=== PATIENT | female | born 1980 | race Caucasian/White ===

== ENCOUNTER 2017-03-26 05:58 | Inpatient (IN) | payer MEDICARE, MEDICAID ==
[~2017-03-26] VITALS: Ht 152.4 cm; Wt 55.6 kg
[~2017-03-26 05:58] MED LIST: DIVA125C PO; DIVA125T2 PO
[2017-03-26 07:08] LABS: RAPID INFLUENZA A Negative (Negative); RAPID INFLUENZA B Negative (Negative)
[2017-03-26 07:13] LABS: HEMATOCRIT 42.1 % (34.6-47.8); HEMOGLOBIN 14.4 g/dL (11.7-16.4); WHITE BLOOD COUNT 19.2 x10^3/uL (3.4-10)
[2017-03-26] MEDS ORDERED: GLYCERIN ADULT SUPP PR ONE (07:30)
[2017-03-26 07:48] LABS: ASPARTATE AMINO TRANSFERASE 12 U/L (15-37); BLOOD UREA NITROGEN 20 mg/dL (7-18)
[2017-03-26] MEDS ORDERED: CEFTRIAXONE PMX 1GM/50ML 50 ML IVPB ONE (08:00)
[2017-03-26] MEDS ORDERED: SODIUM CHLORIDE 0.9% 1,000ML IVBOLUS ONE (08:00)
[2017-03-26] MEDS ORDERED: CEFTRIAXONE PMX 1GM/50ML 50 ML ONE (08:02)
[2017-03-26] MEDS ORDERED: MORPHINE SULFATE 4 MG/ML, 1ML ONE ×2 (08:02→09:52)
[2017-03-26] MEDS: MORPHINE SULFATE 4 MG/ML, 1ML IVPush PRN ×2 (08:09→09:55)
[2017-03-26] MEDS ORDERED: OMNIPAQUE 350 MG/ML, 100ML BOTTLE ONE (10:00)
[2017-03-26] MEDS ORDERED: HYDROmorphone 1 MG/ML, 1ML ONE (10:26)
[2017-03-26] MEDS: HYDROmorphone 1 MG/ML, 1ML IVPush PRN ×2 (10:31→16:01)
[2017-03-26] MEDS ORDERED: VALPROATE SODIUM IV ONE (11:25)
[2017-03-26] MEDS ORDERED: DEXTROSE 5% IV ONE (11:25)
[2017-03-26] MEDS ORDERED: PHARMACY MAY ADJ FOR RENAL FX MC SCH (12:30)
[2017-03-26] MEDS ORDERED: PIPERACILLIN/TAZO/PMX 4.5GM 100 ML IVPB SCH (12:30)
[2017-03-26] MEDS ORDERED: HYDROmorphone 1 MG/ML, 1ML IV ONE (13:30)
[2017-03-26] MEDS ORDERED: KETOROLAC 30 MG/1 ML IM SCH (14:00)
[2017-03-26] MEDS ORDERED: HYDROmorphone 1 MG/ML, 1ML IV PRN (14:30)
[2017-03-26 14:53] VITALS: BP 134/89
[2017-03-26] MEDS: NS + 20MEQ KCL 1,000 ML IV SCH (16:00)
[2017-03-26] MEDS: SENNA/DOCUSATE TABLET PO SCH (16:01)
[2017-03-26] MEDS: ENOXAPARIN 30 MG/0.3 ML SQ SCH ×2 (16:02→23:40)
[2017-03-26] MEDS: KETOROLAC 30 MG/1 ML IV SCH ×2 (17:12→21:25)
[2017-03-26] MEDS: PIPERACILLIN/TAZO/PMX 4.5GM 100 ML IVPB SCH ×2 (17:24→23:40)
[2017-03-26] MEDS ORDERED: KETOROLAC 30 MG/1 ML IV SCH (20:00)
[2017-03-26 20:58] VITALS: BP 130/90
[2017-03-26] MEDS: DIVALPROEX 125 MG CAP.SPRINK PO SCH (21:00)
[2017-03-26] MEDS ORDERED: DIVALPROEX 125 MG CAP.SPRINK PO SCH (21:00)
[2017-03-26] MEDS: FAMOTIDINE 20 MG TABLET PO SCH (21:25)
[2017-03-27 02:15] VITALS: BP 96/56
[2017-03-27] MEDS: KETOROLAC 30 MG/1 ML IV SCH ×3 (04:30→17:49)
[2017-03-27] MEDS: PIPERACILLIN/TAZO/PMX 4.5GM 100 ML IVPB SCH ×3 (05:15→17:49)
[2017-03-27] MEDS: NS + 20MEQ KCL 1,000 ML IV SCH ×3 (05:15→20:40)
[2017-03-27 06:15] LABS: HEMATOCRIT 33.1 % (34.6-47.8); HEMOGLOBIN 11.2 g/dL (11.7-16.4); WHITE BLOOD COUNT 7.3 x10^3/uL (3.4-10)
[2017-03-27 06:31] LABS: ASPARTATE AMINO TRANSFERASE 20 U/L (15-37); BLOOD UREA NITROGEN 13 mg/dL (7-18)
[2017-03-27 06:51] VITALS: BP 96/63
[2017-03-27] MEDS: DIVALPROEX 125 MG CAP.SPRINK PO SCH ×2 (09:00→20:42)
[2017-03-27] MEDS: SENNA/DOCUSATE TABLET PO SCH (09:00)
[2017-03-27] MEDS ORDERED: LORazepam 2 MG/ML, 1ML IVPush PRN (12:00)
[2017-03-27 13:40] VITALS: BP 114/77
[2017-03-27] MEDS: ENOXAPARIN 30 MG/0.3 ML SQ SCH (14:02)
[2017-03-27 19:12] VITALS: BP 136/83
[2017-03-27] MEDS: FAMOTIDINE 20 MG TABLET PO SCH (20:41)
[2017-03-28] MEDS: KETOROLAC 30 MG/1 ML IV SCH ×3 (00:34→11:57)
[2017-03-28] MEDS: ENOXAPARIN 30 MG/0.3 ML SQ SCH ×2 (02:54→14:00)
[2017-03-28] MEDS: PIPERACILLIN/TAZO/PMX 4.5GM 100 ML IVPB SCH (02:54)
[2017-03-28 03:26] VITALS: BP 112/82
[2017-03-28 05:55] LABS: HEMATOCRIT 35.8 % (34.6-47.8); HEMOGLOBIN 12.2 g/dL (11.7-16.4); WHITE BLOOD COUNT 5.6 x10^3/uL (3.4-10)
[2017-03-28] MEDS: NS + 20MEQ KCL 1,000 ML IV SCH (05:59)
[2017-03-28 06:10] LABS: BLOOD UREA NITROGEN 5 mg/dL (7-18)
[2017-03-28 08:00] VITALS: BP 118/78
[2017-03-28] MEDS ORDERED: SENNA/DOCUSATE TABLET PO SCH (09:00)
[2017-03-28] MEDS: DIVALPROEX 125 MG CAP.SPRINK PO SCH (09:00)
[2017-03-28] MEDS ORDERED: CEFTRIAXONE PMX 1GM/50ML 50 ML IV ONE (09:30)
[2017-03-28] MEDS ORDERED: POLY17PO5 PO (11:42)
[2017-03-28] MEDS ORDERED: CEFD300C37 PO (11:42)
[2017-03-28 13:12] VITALS: BP 122/87
== END 2017-03-28 16:20 | disposition home or self-care (01) | DRG 872 ==
LOC: ED 07:09 → EDIP 11:43 → 4EST 14:42 → 4WST 20:49
PROVIDERS: ADMIT Family Medicine; ATTEND Family Medicine
PROC: 0T9B70Z Drainage of Bladder with Drainage Device, Via Natural or Artificial Opening (ICD-10-PCS; principal; 2017-03-26)
DX: A41.9 Sepsis, unspecified organism (principal); G40.919 Epilepsy, unspecified, intractable, without status epilepticus; Q31.5 Congenital laryngomalacia; J98.11 Atelectasis; G80.9 Cerebral palsy, unspecified; R65.20 Severe sepsis without septic shock; K56.41 Fecal impaction; N30.90 Cystitis, unspecified without hematuria; K37 Unspecified appendicitis; F79 Unspecified intellectual disabilities; B96.20 Unspecified Escherichia coli [E. coli] as the cause of diseases classified elsewhere; R45.1 Restlessness and agitation; Z79.899 Other long term (current) drug therapy; Z88.6 Allergy status to analgesic agent; Z88.5 Allergy status to narcotic agent; Z91.018 Allergy to other foods
CPT/HCPCS: 36415; 71010; 74177; 80048; 80053; 81001; 83605; 83690; 84145; 85025; 87040; 87077; 87086; 87186; 87400; J0696; J1170; J1650; J1885; J2543; J3480; Q9967; J2060; J7030

== ENCOUNTER 2017-04-05 10:33 | Emergency (ER) | payer MEDICARE, MEDICAID ==
[~2017-04-05] VITALS: Ht 154.9 cm; Wt 50.0 kg
[~2017-04-05 10:33] MED LIST changes: +CEFD300C37 PO; +POLY17PO5 PO
[2017-04-05 11:21] LABS: HEMATOCRIT 41.4 % (34.6-47.8); WHITE BLOOD COUNT 6.9 x10^3/uL (3.4-10)
[2017-04-05 11:40] LABS: ASPARTATE AMINO TRANSFERASE 14 U/L (15-37); BLOOD UREA NITROGEN 10 mg/dL (7-18)
[2017-04-05] MEDS ORDERED: KETOROLAC 30 MG/1 ML IM ONE (12:00)
[2017-04-05] MEDS ORDERED: KETOROLAC 30 MG/1 ML ONE (13:56)
== END 2017-04-05 14:08 | disposition home or self-care (01) ==
LOC: ED 12:25
DX: K59.00 Constipation, unspecified (principal); M25.511 Pain in right shoulder
CPT/HCPCS: 36415; 73030; 74022; 80053; 81003; 85025; 96372; 99285; J1885

== ENCOUNTER 2017-05-24 12:51 | Emergency (ER) | payer MEDICARE, MEDICAID ==
[~2017-05-24] VITALS: Ht 154.9 cm; Wt 48.4 kg
[~2017-05-24 12:51] MED LIST changes: +METR500T PO
[2017-05-24 13:07] VITALS: BP 114/81
[2017-05-24 14:00] LABS: WHITE BLOOD COUNT 5.6 x10^3/uL (3.4-10)
[2017-05-24 14:16] LABS: BLOOD UREA NITROGEN 9 mg/dL (7-18)
[2017-05-24 14:19] LABS: ASPARTATE AMINO TRANSFERASE 14 U/L (15-37)
[2017-05-24] MEDS ORDERED: SODIUM CHLORIDE 0.9% 1,000ML IVBOLUS ONE (14:30)
[2017-05-24] MEDS ORDERED: SODIUM CHLORIDE FLUSH 10ML SYR IVF ONE (14:30)
== END 2017-05-24 16:12 | disposition home or self-care (01) ==
LOC: ED 14:13
DX: R19.7 Diarrhea, unspecified (principal)
CPT/HCPCS: 36415; 74020; 80053; 85025; 87324; 89055; 99285

== ENCOUNTER 2017-06-09 20:38 | Emergency (ER) | payer MEDICARE, MEDICAID ==
[~2017-06-09] VITALS: Ht 157.5 cm; Wt 54.3 kg
[2017-06-09 20:40] VITALS: BP 114/74
== END 2017-06-09 23:04 | disposition home or self-care (01) ==
LOC: ED 21:26
DX: K59.00 Constipation, unspecified (principal); Z88.8 Allergy status to other drugs, medicaments and biological substances
CPT/HCPCS: 74020; 99284

== ENCOUNTER 2018-06-17 08:13 | Emergency (ER) | payer MEDICARE, MEDICAID ==
[~2018-06-17] VITALS: Ht 154.9 cm; Wt 60.0 kg
[~2018-06-17 08:13] MED LIST changes: -DIVA125C PO; +DIVA125C2 PO
[2018-06-17] MEDS ORDERED: ONDANSETRON 2MG/ML, 2ML ONE (08:42)
[2018-06-17] MEDS ORDERED: MORPHINE SULFATE 4 MG/ML, 1ML ONE (08:42)
--- NOTE | 2018-06-17 08:46 | NUR ---
PT TAKEN TO X RAY.
[2018-06-17 08:51] LABS: BASOPHILS # (AUTO) 0.04 x10^3/uL (0-0.1); BASOPHILS % (AUTO) 0 % (0-1); EOSINOPHILS # (AUTO) 0.01 x10^3/uL (0-0.4); EOSINOPHILS % (AUTO) 0 % (1-7); LYMPHOCYTES # (AUTO) 1.75 x10^3/uL (1-3.4); LYMPHOCYTES % (AUTO) 16 % (22-44); MD NO; MEAN CORPUSCULAR HEMOGLOBIN 31.6 pg (27.0-34.8); MEAN CORPUSCULAR HGB CONC 33.6 g/dL (32.4-35.8); MEAN CORPUSCULAR VOLUME 93.9 fL (80-100); MEAN PLATELET VOLUME 8.9 fL (7.4-10.4); MONOCYTES # (AUTO) 0.78 x10^3/uL (0.2-0.8); MONOCYTES % (AUTO) 7 % (2-9); NEUTROPHILS # (AUTO) 8.42 x10^3/uL (1.8-6.8); NEUTROPHILS % (AUTO) 77 % (42-75); PLATELET COUNT 299 x10^3/uL (130-400); RED BLOOD COUNT 4.97 x10^6/uL (3.82-5.3); RED CELL DISTRIBUTION WIDTH 14.5 % (9.6-15.2)
[2018-06-17 08:55] LABS: ALANINE AMINOTRANSFERASE 20 U/L (12-78); ALBUMIN 3.9 g/dL (3.4-5.0); ANION GAP 11 mmol/L (5-15); CHLORIDE 109 mmol/L (98-107); CREATININE 0.82 mg/dL (0.55-1.02)
[2018-06-17 09:00] LABS: ALKALINE PHOSPHATASE 267 U/L (45-117); BILIRUBIN,TOTAL 0.5 mg/dL (0.2-1.0); TOTAL PROTEIN 8.1 g/dL (6.4-8.2)
[2018-06-17] MEDS ORDERED: MORPHINE SULFATE 4 MG/ML, 1ML IVPush PRN (09:00)
[2018-06-17] MEDS ORDERED: SODIUM CHLORIDE FLUSH 10ML SYR IVF ONE (09:00)
[2018-06-17] MEDS ORDERED: ONDANSETRON 2MG/ML, 2ML IVPush ONE (09:00)
--- NOTE | 2018-06-17 09:03 | NUR ---
JOCELYNE RN: PATIENT RETURNED FROM RAD AND MOTHER WITH PATIENT. MOTHER PREPORTS THAT SHE DOESN'T WANT PATIENT TO HAVE MORPHINE AND ZOFRAN AT THIS TIME DUE TO PATIENT CONSTIPTATION AND WOULD LIKE PATIENT TO HAVE ENEMA AFTER RESULTS OF TESTS
[2018-06-17 10:16] LABS: CULTURE INDICATED? YES; MICROSCOPIC INDICATED
--- NOTE | 2018-06-17 10:49 | NUR ---
PT IS ON THE COMMODE TO TRY AND HAVE A BM. MOM AT BEDSIDE.
[2018-06-17] MEDS ORDERED: KETAMINE 10 MG/ML, 20ML IV ONE (11:30)
--- NOTE | 2018-06-17 11:35 | NUR ---
PT MOVED TO TR03.
[2018-06-17] MEDS ORDERED: KETAMINE 50 MG/ML, 10ML ONE (11:48)
--- NOTE | 2018-06-17 12:00 | NUR ---
MODERATE SEDATION SET UP. DUMP TRUCK OPERATOR, O2 SAT, CAPNOGRAPHY, BP CUFF, SUCTION, CODE CART AT BS. SEE PAPER RECORD. PATIENT TOLERATED PROCEDURE WELL. PLACED URINARY CATH AND EMPTYIED BLADDER 700 CC OBTAINED. MD EXPLAINED PLAN OF CARE TO MOTHER.
--- NOTE | 2018-06-17 12:44 | NUR ---
1135 LATE ENTRY. PT MOVED TO TRO3 FOR SEDATION IN THE CARE OF NURSE NATALIYA AVERY.
--- NOTE | 2018-06-17 12:52 | NUR ---
PT MOVED TO ROOM 15. ASSUMED CARE OF PT.
--- NOTE | 2018-06-17 12:56 | NUR ---
PT IS RESTING IN BED, ALERT, RESPIRATIONS EQUAL AND NON LABORED. NAD. PT IS CONNECTED TO THE MONITOR. CALL LIGHT WITHIN REACH. MOM AT BEDSIDE.
--- NOTE | 2018-06-17 12:56 | NUR ---
REPORT TO ASHLEIGH AVERY. PATIENT MOVED TO ROOM 15
[2018-06-17 13:48] VITALS: BP 141/86
--- NOTE | 2018-06-17 14:06 | NUR ---
RADIOLOGY AT BEDSIDE.
--- NOTE | 2018-06-17 14:17 | NUR ---
MEDICATION REQUESTED FROM PHARMACY.
[2018-06-17] MEDS ORDERED: DIVALPROEX 125 MG CAP.SPRINK PO ONE (14:30)
--- NOTE | 2018-06-17 14:58 | NUR ---
Caregiver given discharge instructions and they have confirmed that they understand the instructions. Patient TAKEN OUT IN WHEELCHAIR.
== END 2018-06-17 15:00 | disposition home or self-care (01) ==
LOC: ED 09:41
DX: K56.41 Fecal impaction (principal); R33.9 Retention of urine, unspecified; G40.909 Epilepsy, unspecified, not intractable, without status epilepticus
CPT/HCPCS: 36415; 74018; 76770; 80053; 81001; 83690; 84703; 85025; 87086; 99152; 99284; 99285

== ENCOUNTER 2018-06-18 10:51 | Emergency (ER) | payer MEDICARE, MEDICAID ==
[~2018-06-18] VITALS: Ht 154.9 cm; Wt 58.4 kg
--- NOTE | 2018-06-18 12:24 | NUR ---
Bladder scan = 72mL.
[2018-06-18 12:55] VITALS: BP 131/75
--- NOTE | 2018-06-18 12:55 | NUR ---
Patient/Caregiver given discharge instructions and they have confirmed that they understand the instructions. Patient ambulatory with steady gait.
== END 2018-06-18 12:56 | disposition home or self-care (01) ==
LOC: ED 11:18
DX: Z00.00 Encounter for general adult medical examination without abnormal findings (principal); G40.909 Epilepsy, unspecified, not intractable, without status epilepticus
CPT/HCPCS: 99281

== ENCOUNTER 2020-09-28 02:47 | Emergency (ER) | payer MEDICARE, MEDICAID ==
[~2020-09-28] VITALS: Ht 154.9 cm; Wt 65.0 kg
[2020-09-28 02:49] VITALS: BP 146/102
[2020-09-28 03:39] LABS: BASOPHILS % (AUTO) 0 % (0-1); EOSINOPHILS % (AUTO) 1 % (1-7); LYMPHOCYTES % (AUTO) 25 % (22-44); MEAN CORPUSCULAR HGB CONC 34.3 g/dL (32.4-35.8); MEAN PLATELET VOLUME 8.3 fL (7.4-10.4); MONOCYTES % (AUTO) 9 % (2-9); NEUTROPHILS % (AUTO) 64 % (42-75); PLATELET COUNT 237 x10^3/uL (130-400); RED CELL DISTRIBUTION WIDTH 13.9 % (9.6-15.2)
[2020-09-28 03:46] LABS: ALBUMIN 3.4 g/dL (3.4-5.0); ANION GAP 8 mmol/L (5-15); CALCIUM 9.5 mg/dL (8.5-10.1); CHLORIDE 104 mmol/L (98-107)
[2020-09-28 03:49] LABS: ALANINE AMINOTRANSFERASE 16 U/L (12-78); ALKALINE PHOSPHATASE 248 U/L (45-117); BILIRUBIN,TOTAL 0.2 mg/dL (0.2-1.0); CREATININE 0.59 mg/dL (0.55-1.02); TOTAL PROTEIN 7.3 g/dL (6.4-8.2)
--- NOTE | 2020-09-28 03:54 | NUR ---
REPORT FROM YANNA AVERY
[2020-09-28] MEDS ORDERED: BISACODYL 10 MG SUPP ONE (04:27)
[2020-09-28] MEDS ORDERED: BISACODYL 10 MG SUPP PR ONE (04:30)
== END 2020-09-28 04:30 ==
LOC: ED 03:17
DX: K59.00 Constipation, unspecified (principal); R41.82 Altered mental status, unspecified; G40.909 Epilepsy, unspecified, not intractable, without status epilepticus
CPT/HCPCS: 36415; 71045; 74018; 80053; 85025; 99284

== ENCOUNTER 2020-10-04 13:08 | Emergency (ER) | payer MEDICARE, MEDICAID ==
[~2020-10-04] VITALS: Ht 154.9 cm; Wt 64.1 kg
--- NOTE | 2020-10-04 13:19 | NUR ---
BIB EMS FOR C/O R HEAD LAC AFTER MGLF. PT WAS WALKING TO HER ROOM WITHOUT HER LEG BRACES AND SHE FELL AND HIT THE COFFEE TABLE. PT NOT ON BLOOD THINNERS. DENIES LOC. PT MOTHER STATES NO CHANGES IN MENTAL STATUS. HX CEREBRAL PALSY AND DEVELOPMENTAL DELAY. PT CURRENTLY HAS EAR INFECTION ON ABX. 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 PT RESTING ON GURNEY. NADN. MONITORS APPLIED. VSS. WARM BLANKET PROVIDED. FAMILY AT BEDSIDE.
--- NOTE | 2020-10-04 13:26 | NUR ---
PT RESTING ON GURNEY. NADN. ALLEN.
[2020-10-04] MEDS ORDERED: LIDOCAINE-MPF 1%, 5ML ONE ×2 (13:44→13:47)
[2020-10-04] MEDS ORDERED: LIDOCAINE 1%, 10ML INFIL ONE (14:00)
[2020-10-04 14:35] VITALS: BP 129/92
--- NOTE | 2020-10-04 14:35 | NUR ---
PT RESTING ON GURNEY. NADN. ALLEN.
== END 2020-10-04 15:01 | disposition home or self-care (01) ==
LOC: ED 14:50
DX: S01.01XA Laceration without foreign body of scalp, initial encounter (principal); G40.909 Epilepsy, unspecified, not intractable, without status epilepticus; W18.30XA Fall on same level, unspecified, initial encounter; Y93.89 Activity, other specified; Y92.009 Unspecified place in unspecified non-institutional (private) residence as the place of occurrence of the external cause; Y99.8 Other external cause status
CPT/HCPCS: 12001; 99283